=== PATIENT | female | born 1960 | race Caucasian/White ===

== ENCOUNTER 2016-11-17 16:21 | Emergency (ER) | payer OTHER ==
[2016-11-17 16:38] VITALS: BP 133/77; TEMP 97.3; O2SAT 100
--- NOTE | 2016-11-17 16:40 | ED.PDOC ---
History of Present Illness - General Chief Complaint: Back Pain or Injury Stated Complaint: back pain after fall Time Seen by Provider: 11/17/16 16:32 Source: patient, RN notes reviewed, Vital Signs reviewed, family Exam Limitations: no limitations - History of Present Illness Initial Comments: Patients dog ran into her knee and knocked her down onto her back. She is having low back and pelvis/hip pain. No radiation of pain, no numbness, tingling or weakness. Denies any other injuries. Timing/Duration: 1-3 hours Quality/Severity: moderate, dullness Back Pain Location: lumbar spine, coccyx, paraspinous muscles Back Pain Radiation: other - None Method of Injury/Prior Injury: fell Improving Factors: rest Worsening Factors: movement Associated Symptoms: muscle spasms, lower back pain Allergies/Adverse Reactions: Allergies NO KNOWN ALLERGY Allergy (Verified 12/14/12 12:48) Home Medications: Ambulatory Orders Acetamin W/Cod #3 Tab [Tylenol w/CODEINE #3] 1 - 2 ea PO Q6HR PRN #30 tab Cortef 11/17/16 Levothyroxine Sodium 11/17/16 Lisinopril 11/17/16 Review of Systems - Review of Systems Constitutional: States: no symptoms reported Respiratory: States: no symptoms reported Cardiology: States: no symptoms reported Gastrointestinal/Abdominal: States: no symptoms reported Musculoskeletal: States: see HPI, back pain, muscle pain. Denies: neck pain Skin: States: no symptoms reported Neurological: States: no symptoms reported. Denies: numbness, paresthesia, tingling, tremors, weakness Endocrine: States: no symptoms reported Past Medical History (General) - Patient Medical History Hx Hypertension: Yes Hx Thyroid Disease: Yes - Vaccination History Hx Influenza Vaccination: No Hx Pneumococcal Vaccination: No Family Medical History - Family History Mother Family History: Unknown Living Status: Unknown Physical Exam - Physical Exam General Appearance: Alert, No apparent distress, Well Developed, Well Groomed, Well Hydrated, Well Nourished Peripheral Pulses: dorsalis pedis,right: 2+, dorsalis pedis,left: 2+ Back Exam: muscle spasm, vertebral tenderness - over L spine and sacrum Extremity Exam: normal range of motion, non-tender, no pedal edema, pelvis stable Neurologic: no motor/sensory deficits, alert, normal mood/affect, oriented x 3 Skin Exam: normal color, warm/dry Progress - Progress Progress: 11/17/16 17:21 Discussed X-ray results with Ortho - Dr. Saavedra. He recommended a CT scan to confirm. Most likely will be non-operative with pain control and weight bearing as tolerated. 11/17/16 18:05 CT confirms sacral fracture. Will treat conservatively and have her follow up with Dr. Saavedra. - EKG/XRAY/CT XRAY: pelvis Xray Comments: Per Radiologist there is a minimally displaced mid sacral fracture. CT Ordered: Yes - Nondisplaced sacral fracture. Departure - Departure Clinical Impression: Sacral fracture, closed Time of Disposition: 18:06 Disposition: Discharge to Home or Self Care Condition: Good Departure Forms: ED Discharge - Pt. Copy, Patient Portal Self Enrollment Instructions: Sacral Stress Fracture Diet: resume usual diet Activity: increase activity as tolerated Referrals: Stella Ayoub NP [Primary Care Provider] - 1-2 Weeks Fuad Saavedra MD [Active Staff] - 1-5 Days Prescriptions: Acetamin W/Cod #3 Tab [Tylenol w/CODEINE #3] 1 - 2 ea PO Q6HR PRN #30 tab PRN Reason: Moderate To Severe Pain Home Medications: Ambulatory Orders Acetamin W/Cod #3 Tab [Tylenol w/CODEINE #3] 1 - 2 ea PO Q6HR PRN #30 tab Cortef 11/17/16 Levothyroxine Sodium 11/17/16 Lisinopril 11/17/16
--- NOTE | 2016-11-17 17:07 | RAD ---
EXAM DESCRIPTION: XR LUMBAR SPINE 2-3 VIEWS CLINICAL HISTORY: pain s/p fall COMPARISON: None available FINDINGS: Four views of the lumbar spine show no lumbar vertebral body fracture or subluxation. Mild to moderate degenerative changes are noted at several levels in the lumbar spine including disk space narrowing and marginal osteophyte formation, worse at L4-5. The spinous and transverse processes appear intact. The sacroiliac joints are unremarkable. IMPRESSION: Mild to moderate multilevel degenerative changes, but no acute lumbar spine abnormality. Electronically signed by: Bautista Sousa DO 11/17/2016 17:05
--- NOTE | 2016-11-17 17:08 | RAD ---
EXAM DESCRIPTION: XR PELVIS 1-2 VIEWS CLINICAL HISTORY: pain s/p fall COMPARISON: None available FINDINGS: Single AP view of the pelvis shows no displaced pelvic fracture. Mild degenerative changes are noted in both hip joints. The sacroiliac joints are fairly well maintained, and the pubic symphysis is anatomically aligned. There is no acute soft tissue abnormality. IMPRESSION: Negative exam. If clinical suspicion of pelvic injury persists, CT is suggested. Electronically signed by: Bautista Sousa DO 11/17/2016 17:06
--- NOTE | 2016-11-17 17:10 | RAD ---
EXAM DESCRIPTION: XR SACRUM COCCYX 2 OR MORE VIEWS CLINICAL HISTORY: pain s/p fall COMPARISON: None available FINDINGS: Three views of the sacrum and coccyx show slight cortical offset involving the mid sacral body seen only on the lateral view. No fracture plane is definitely identified, and this is of questionable acuity. No displaced coccygeal fracture is seen. The sacrum is partially obscured by superimposed bowel contents on the frontal views, but no sacral fracture is seen on any other view. The sacroiliac joints are unremarkable. IMPRESSION: Minimally displaced mid sacral body fracture, questionable acuity. If clinically relevant, CT could be performed for further evaluation. Otherwise unremarkable exam. Electronically signed by: Bautista Sousa DO 11/17/2016 17:08
--- NOTE | 2016-11-17 17:55 | CT ---
EXAM DESCRIPTION: CT PELVIS WITHOUT INTRAVENOUS CONTRAST CLINICAL HISTORY: Evaluation of sacral fracture. COMPARISON: X-ray of the sacrum done on the same day. TECHNIQUE: CT of the pelvis was performed without intravenous contrast. Oral contrast was not given. FINDINGS: The bilateral sacroiliac joints are intact. There is mild crowding of the trabeculae of the right-sided S1 segment of the sacrum, which may represent age-indeterminate nondisplaced fracture of the right sacral ala. A faint fracture line is also seen in the same region of the sacrum, best on the coronal images The urinary bladder is well distended. The remainder of the bony pelvis does not show any evidence of acute bony trauma IMPRESSION: There is mild crowding of the trabeculae of the right-sided S1 segment of the sacrum, which may represent age-indeterminate nondisplaced fracture of the right sacral ala. A faint fracture line is also seen in the same region of the sacrum, best on the coronal images Electronically signed by: Mateusz Murdock MD 11/17/2016 17:53
[2016-11-17] MEDS ORDERED: HYDROcodone 7.5MG/APAP 325MG 1 EA TAB PO ONE (18:01)
[2016-11-17] MEDS ORDERED: HYDROcodone 7.5MG/APAP 325MG 1 EA TAB ONE (18:03)
== END 2016-11-17 18:16 | disposition home or self-care (01) ==
LOC: ER 16:21
DX: S32.10XA Unspecified fracture of sacrum, initial encounter for closed fracture (principal); I10 Essential (primary) hypertension; E07.9 Disorder of thyroid, unspecified; W54.1XXA Struck by dog, initial encounter

== ENCOUNTER → 2016-12-09 | Outpatient (CLI) | payer OTHER | END | disposition home or self-care (01) | LOC: GMAH 10:29 | PROVIDERS: ATTEND Family Medicine | DX: E03.9 Hypothyroidism, unspecified (principal) ==

== ENCOUNTER → 2017-12-17 | Outpatient (CLI) | payer OTHER | LOC: GMAH 10:42 | PROVIDERS: ATTEND Family Medicine | DX: E03.9 Hypothyroidism, unspecified (principal); E55.9 Vitamin D deficiency, unspecified ==